=== PATIENT | female | born 1950 | race Caucasian/White ===

== ENCOUNTER 2018-04-30 18:45 | Inpatient (IN) ==
[2018-04-30] MEDS ORDERED: ALPRAZolam 1 MG TABLET PO PRN (19:18)
[2018-04-30] MEDS ORDERED: D5% in Water 1,000 ML IVC PRN (19:36)
[2018-04-30] MEDS ORDERED: *HR* Dextrose 50 % in Water (Syg) 50 ML SYRINGE IVP PRN (19:36)
[2018-04-30] MEDS ORDERED: Dextrose Gel 15 GM/37.5 ML TUBE PO PRN ×2 (19:36)
[2018-04-30] MEDS: Insulin LISPRO 300 UNITS/3 ML VIAL SQ SCH (22:51)
[2018-04-30] MEDS: Fluticasone Propionate Nasal 50 MCG/SPRAY BOTTLE NS SCH (22:53)
[2018-04-30] MEDS: Budesonide/Formoterol 160/4.5 1 PUFF INH IH SCH (23:04)
[2018-04-30] MEDS: GuaiFENesin/Dextromethorphan TABLET PO SCH (23:15)
[2018-04-30] MEDS: Ipratropium/Albuterol Neb 3 ML IH PRN (23:16)
[2018-05-01 06:01] LABS: Basophils % 0.2 %; Eosinophils % 0.2 %; Hematocrit 38.9 % (35.3-44.9); Hemoglobin 11.6 g/dL (11.5-15.4); Immature Granulocytes % 1.9 % (0-4); Lymphocytes # 1.4 K/mcL (0.6-4.6); Lymphocytes % 11.7 %; Mean Corpuscular HGB Conc 29.8 g/dL (31.6-35.5); Mean Corpuscular Hemoglobin 24.1 pg (28.0-33.3); Mean Corpuscular Volume 80.7 fL (83.0-100.0); Mean Platelet Volume 10.2 fL (9.4-12.4); Monocytes % 10.2 %; Neutrophils # 9.3 K/mcL (1.6-8.9); Platelet Count 158 K/mcL (140-400); Red Blood Count 4.82 M/mcL (3.82-4.97); Red Cell Distribution Width 15.3 % (11.5-14.5); Segmented Neutrophils % 75.8 %
[2018-05-01 06:06] LABS: Monocytes # 1.2 K/mcL (0.0-1.3); Prothrombin Time 10.8 Seconds (9.4-12.1)
[2018-05-01 06:09] LABS: Activated Partial Thrombo Time 28.4 Seconds (26.0-36.0)
[2018-05-01] MEDS: *HR* Enoxaparin 40 MG/0.4 ML SYRINGE SQ SCH (07:01)
[2018-05-01 07:02] LABS: BUN/Creatinine Ratio 49 (6-26); Blood Urea Nitrogen 28 mg/dL (8-23); Calcium 9.1 mg/dL (8.6-10.3); Carbon Dioxide 45 mEq/L (23-29); Chloride 94 mEq/L (98-107); Glucose 136 mg/dL (70-105); Osmolality,Calculated 304 (280-300); Potassium 3.4 mEq/L (3.5-5.1); Sodium 143 mEq/L (136-145); eGFR For Non-African Americans > 60 (> 60)
[2018-05-01] MEDS: Insulin LISPRO 300 UNITS/3 ML VIAL SQ SCH ×4 (07:47→21:10)
[2018-05-01] MEDS: Loratadine 10 MG TABLET PO SCH (08:28)
[2018-05-01] MEDS: predniSONE 20 MG TABLET PO SCH (08:28)
[2018-05-01] MEDS: Diltiazem CD (24hr) 240 MG CAPSULE PO SCH (08:28)
[2018-05-01] MEDS: Magnesium Oxide 400 MG TABLET PO SCH (08:29)
[2018-05-01] MEDS: Budesonide/Formoterol 160/4.5 1 PUFF INH IH SCH ×2 (08:29→21:09)
[2018-05-01] MEDS: Fluticasone Propionate Nasal 50 MCG/SPRAY BOTTLE NS SCH ×2 (08:29→21:10)
[2018-05-01] MEDS: GuaiFENesin/Dextromethorphan TABLET PO SCH ×2 (08:29→21:09)
--- NOTE | 2018-05-01 08:57 | Internal Med History&Physical ---
Date of Encounter: 05/01/18 Time of Encounter: 08:53 Assessment and Plan (1) COPD (chronic obstructive pulmonary disease) with acute bronchitis Current visit: Yes Status: Acute Acute exacerbation of her COPD she was admitted at least at two different facilities . She still gets SOB quickly , she has some cough which is productive.yellow color . Will repeat sputum cultures , CXR and added doxycycline . She was started on theophylline ,however she is complaining of some anxiety and restless , which was has been stopped She was on 5 liters which ahs been decreased to 3 liters will try to keep her Pulse Oxy around 91 . She could be a retainer . Will get ABG (2) Diabetes 1.5, managed as type 2 Current visit: Yes Status: Acute On oral meds sliding scale added will continue to followup and adjsut . Her Blood sugar is expected to increase due to predispose. (3) Weakness generalized Current visit: Yes Status: Acute diue to respiratory issues and lack of exercise . PT OT consult and increase mobility as tolerated Internal Medicine - H&P: HPI Chief complaint: SOB and cugh Admitted From: Intrahospital Transfer (from [facility]) History of present illness: Ms. Robins is a 67 year old female wh was transferred from [facility] for COPD exacerbation and continuation of treatment ans rehab . She was initially admitted to [facility] for with suspected COPD and then alter transferred to [facility] . She states that she was getting SOb , had cough and was not feeling well . This has been her second admission in a year due to respiratory issues no chest pain no nausea vomiting or diarrhea She does get D SOB on laying down and prefers to sit . 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 She still complains of SOB on minimal exertion and feels that she is very weak Past Med Surg Social Fam HX - Past Medical History Medical history: cancer, COPD, diabetes, hypertension Additional medical history: skin cancer Psychiatric history: anxiety - Past Surgical History Surgical History: hysterectomy Additional surgical history: elbow sx, right shoulder sx (2017), achilles tendon sx (02/01) - Social History Smoking Status: Former smoker Packs per day: 1 Smokeless Tobacco Status: No Alcohol use: occasionally Drug use: none Internal Medicine - H&P: Meds 3 Allergy/AdvReac Type Severity Reaction Status Date / Time adhesive tape Allergy Itching Verified 04/30/18 19:10 codeine Allergy Itching Verified 04/30/18 19:10 mold Allergy Difficulty Verified 04/30/18 19:10 Breathing Sulfa (Sulfonamide Allergy Itching Verified 04/30/18 19:10 Antibiotics) All Systems PM: A 10-system review of systems was performed and is negative for pertinent findings except as documented above in the HPI. - Constitutional Constitutional: fatigue, weakness, no chills, no excessive sweating, no fever(s) , no falls, no lethargy - EENT Eyes: no diplopia, no discharge, no dry eye, no itchy eyes, no loss of vision, no pain, no photophobia, no seeing flashes Ears: no ear discharge, no ear pain Nose, mouth and throat: no bleeding gums, no dry mouth, no dysphagia, no epistaxis, no mouth pain, no nasal obstruction, no neck mass - Cardiovascular Cardiovascular ROS IM: dyspnea, dyspnea on exertion, orthopnea, no chest pain, no claudication, no edema, no irregular heart rhythm, no lightheadedness, no palpitations, no syncope - Respiratory Respiratory: cough, dyspnea, dyspnea on exertion, wheezing, chest congestion, excessive phlegm production, no pain on inspiration, no change in phlegm color, no pain with cough - Gastrointestinal Gastrointestinal: no abdominal pain, no bloating, no change in stool character, no coffee ground emesis, no heartburn, no hematemesis, no hematochezia, no melena, no nausea, no vomiting - Genitourinary Genitourinary: no nocturia, no pelvic pain, no urinary frequency, no urinary hesitancy, no urinary incontinence Menstruation: post hysterectomy - Musculoskeletal Musculoskeletal ROS IM: arthralgias, back pain, limited range of motion - Neurological Neurological ROS: weakness, no abnormal movements, no abnormal speech, no burning sensations, no confusion, no focal weakness, no memory loss, no restless legs - Constitutional Vitals: Temp Pulse Resp BP Pulse Ox 97.3 F L 81 16 138/66 94 05/01/18 07:13 05/01/18 07:13 05/01/18 07:13 05/01/18 07:13 05/01/18 07:13 General appearance: Present: cooperative, A&O X 3 Exam: some what SOb on talking however doesnt have any cynosis feels that she is trying to catch her breath - Head Head exam: Present: atraumatic - Eye Eye exam: Present: EOMI, PERRL. Absent: scleral icterus, sclera anicteric Pupils: Present: PERRL - Neck Neck exam general surgery: Absent: tenderness, nuchal rigidity Additional comments: no JVD noted - Respiratory Respiratory exam: Present: decreased breath sounds, rhonchi, wheezes, tachypnea Additional comments: Prolong Expiration decrease breath sounds both sides some crackles on the left side especially in the middle and lower Lung field . - Cardiovascular Cardiovascular exam: Present: RRR, +S1, +S2. Absent: irregular rhythm, JVD, systolic murmur - GI/Abdominal GI/Abdominal exam: Present: normal bowel sounds, soft. Absent: firm, guarding, rigid, tenderness - Extremities Exam Extremities exam: Present: full ROM. Absent: calf tenderness, pedal edema, tenderness Additional comments: somewhat decrease ROM shoulder and left leg she is using a brace to support her right Achilles - Back Exam Back exam: Present: normal inspection. Absent: CVA tenderness (L), CVA tenderness (R), muscle spasm, tenderness, vertebral tenderness - Neurological Exam Neurological exam: Present: alert, CN II-XII intact, oriented X3, no focal deficits. Absent: facial droop, speech deficit Internal Med - H&P Results - Labs CBC & Chem 7: 05/01/18 05:30 05/01/18 05:30 Labs: Short CBC 05/01/18 Range/Units 05:30 WBC 12.2 H (4.3-11.1) K/mcL Hgb 11.6 (11.5-15.4) g/dL Hct 38.9 (35.3-44.9) % Plt Count 158 (140-400) K/mcL Neutrophils # 9.3 H (1.6-8.9) K/mcL BMP 05/01/18 05:30 Sodium 143 Potassium 3.4 L Chloride 94 L Carbon Dioxide 45 H* BUN 28 H Creatinine 0.57 L Glucose 136 H Calcium 9.1
[2018-05-01 12:19] LABS: ABG Base Excess 13 mEq/L (-2 to 3); ABG HCO3 39 mEq/L (21-27); ABG Oxygen Saturation 93 % (95-98); ABG PCO2 52 mmHg (35-45); ABG PH 7.48 pH Units (7.32-7.45); ABG PO2 65 mmHg (85-104); ABG TCO2 40 mEq/L (20-26)
[2018-05-01] MEDS: Ipratropium/Albuterol Neb 3 ML IH PRN ×2 (13:21→21:09)
[2018-05-01] MEDS: ALPRAZolam 0.25 MG TABLET PO PRN ×2 (14:50→21:09)
[2018-05-02] MEDS: Ipratropium/Albuterol Neb 3 ML IH PRN ×3 (05:01→20:28)
[2018-05-02] MEDS: *HR* Enoxaparin 40 MG/0.4 ML SYRINGE SQ SCH (05:01)
[2018-05-02 05:38] LABS: Basophils % 0.1 %; Eosinophils % 0.3 %; Hematocrit 38.5 % (35.3-44.9); Hemoglobin 11.4 g/dL (11.5-15.4); Immature Granulocytes % 1.6 % (0-4); Lymphocytes # 1.3 K/mcL (0.6-4.6); Lymphocytes % 9.4 %; Mean Corpuscular HGB Conc 29.6 g/dL (31.6-35.5); Mean Corpuscular Volume 81.1 fL (83.0-100.0); Mean Platelet Volume 10.4 fL (9.4-12.4); Monocytes # 1.5 K/mcL (0.0-1.3); Monocytes % 10.6 %; Neutrophils # 10.8 K/mcL (1.6-8.9); Platelet Count 172 K/mcL (140-400); Red Blood Count 4.75 M/mcL (3.82-4.97); Red Cell Distribution Width 15.8 % (11.5-14.5)
[2018-05-02 05:59] LABS: BUN/Creatinine Ratio 45 (6-26); Blood Urea Nitrogen 31 mg/dL (8-23); Calcium 9.4 mg/dL (8.6-10.3); Carbon Dioxide 35 mEq/L (23-29); Chloride 99 mEq/L (98-107); Glucose 311 mg/dL (70-105); Osmolality,Calculated 308 (280-300); Potassium 3.9 mEq/L (3.5-5.1); Sodium 140 mEq/L (136-145); eGFR For Non-African Americans > 60 (> 60)
[2018-05-02] MEDS: Insulin LISPRO 300 UNITS/3 ML VIAL SQ SCH ×4 (07:54→18:12)
[2018-05-02] MEDS: Budesonide/Formoterol 160/4.5 1 PUFF INH IH SCH ×2 (07:56→20:27)
[2018-05-02] MEDS: Fluticasone Propionate Nasal 50 MCG/SPRAY BOTTLE NS SCH ×2 (08:27→20:28)
[2018-05-02] MEDS: GuaiFENesin/Dextromethorphan TABLET PO SCH ×2 (08:27→20:27)
[2018-05-02] MEDS: Loratadine 10 MG TABLET PO SCH (08:28)
[2018-05-02] MEDS: Diltiazem CD (24hr) 240 MG CAPSULE PO SCH (08:28)
[2018-05-02] MEDS: Magnesium Oxide 400 MG TABLET PO SCH (08:28)
[2018-05-02] MEDS: predniSONE 20 MG TABLET PO SCH (08:28)
--- NOTE | 2018-05-02 09:16 | Internal Med Progress Note ---
Date of Encounter: 05/02/18 Time of Encounter: 09:14 - Assessment and plan (1) COPD (chronic obstructive pulmonary disease) with acute bronchitis Current Visit: Yes Status: Acute Assessment and plan: Improving on tapering dose of Prednsone as well on katia doxy slowly decrease N/ C oxygen increase activity as tolerated CXR no infiltrate (2) Diabetes 1.5, managed as type 2 Current Visit: Yes Status: Acute Assessment and plan: Increase blood sugars resume oral meds add sliding scale medium and adjust on prednisone (3) Weakness generalized Current Visit: Yes Status: Acute Assessment and plan: Conitnue increase in activity . PT OT - Subjective Interval history: She is feeling some what better her breathing seems to ahve improved she is having cough and bringing up sputum. Results form previous sputum were reviewed which were negative for all Viral infection , possible rhino virus she is able to move better and is less OSB on talking . Interested to bath - Constitutional Vitals: Temp Pulse Resp BP Pulse Ox 98.7 F 78 16 130/73 96 05/02/18 08:00 05/02/18 08:00 05/02/18 08:00 05/02/18 08:00 05/02/18 08:00 General appearance: Present: cooperative, A&O X 3, pleasant, answers questions appropriately - Head Head exam: Present: atraumatic - Eye Eye exam: Present: EOMI, PERRL Pupils: Present: PERRL - Neck Neck exam general surgery: Present: supple. Absent: tenderness, nuchal rigidity - Respiratory Respiratory exam: Present: decreased breath sounds, CTAB. Absent: chest wall tenderness, respiratory distress, rhonchi, wheezes Additional comments: Air entrt both side few crackles in front otherwise essentially clear - Cardiovascular Cardiovascular exam: Present: RRR, +S2. Absent: irregular rhythm, JVD - GI/Abdominal GI/Abdominal exam: Present: normal bowel sounds, soft. Absent: distended, firm , guarding, rebound, rigid - Extremities Exam Additional comments: Edema noted on her left foot and leg no calf tenderness , left side is within normal range she has hx of swelling on left side . she had surgery achillies on that leg - Neurological Exam Neurological exam: Present: alert, CN II-XII intact, oriented X3, no focal deficits. Absent: facial droop, speech deficit Internal Medicine: Result - Labs CBC & Chem 7: 05/02/18 05:10 05/02/18 05:10 Labs: Short CBC 05/02/18 Range/Units 05:10 WBC 13.8 H (4.3-11.1) K/mcL Hgb 11.4 L (11.5-15.4) g/dL Hct 38.5 (35.3-44.9) % Plt Count 172 (140-400) K/mcL Neutrophils # 10.8 H (1.6-8.9) K/mcL BMP 05/02/18 05:10 Sodium 140 Potassium 3.9 Chloride 99 Carbon Dioxide 35 H BUN 31 H Creatinine 0.69 Glucose 311 H Calcium 9.4 - ABG Interpretation ABG results: ABG ABG pH 7.48 pH Units (7.32-7.45) H 05/01/18 12:15 ABG pCO2 52 mmHg (35-45) H 05/01/18 12:15 ABG pO2 65 mmHg (85-104) L 05/01/18 12:15 ABG O2 Saturation 93 % (95-98) L 05/01/18 12:15 PT/INR, D-dimer PT 10.8 Seconds (9.4-12.1) 05/01/18 05:30 - Impressions Impressions Chest X-Ray 05/01/18 09:21 IMPRESSION: COPD without acute process. D/ / 05/01/2018 13:35:45 Toby Mccarty MD / [place] Interpreting Provider: Toby Mccarty MD Consult Discharge Plan - Plan Referrals: Adina Roberts [Primary Care Provider] -
[2018-05-02] MEDS ORDERED: Acetaminophen 325 MG TABLET PO PRN (09:20)
[2018-05-02] MEDS: *HR* Metformin 500 MG TABLET PO SCH (17:03)
[2018-05-02 18:09] LABS: Estimated Average Glucose 189 mg/dl; Hemoglobin A1C 8.2 %
[2018-05-02] MEDS: ALPRAZolam 0.25 MG TABLET PO PRN (20:27)
[2018-05-02] MEDS ORDERED: Insulin LISPRO 300 UNITS/3 ML VIAL SQ SCH (21:00)
[2018-05-03] MEDS: *HR* Enoxaparin 40 MG/0.4 ML SYRINGE SQ SCH (05:47)
[2018-05-03] MEDS: Ipratropium/Albuterol Neb 3 ML IH PRN (05:48)
[2018-05-03 05:49] LABS: Basophils % 0.2 %; Eosinophils # 0.1 K/mcL (0.0-0.6); Eosinophils % 0.6 %; Hematocrit 35.1 % (35.3-44.9); Hemoglobin 10.6 g/dL (11.5-15.4); Lymphocytes # 1.4 K/mcL (0.6-4.6); Lymphocytes % 11.3 %; Mean Corpuscular HGB Conc 30.2 g/dL (31.6-35.5); Mean Corpuscular Hemoglobin 24.3 pg (28.0-33.3); Mean Corpuscular Volume 80.3 fL (83.0-100.0); Mean Platelet Volume 10.6 fL (9.4-12.4); Monocytes # 1.4 K/mcL (0.0-1.3); Monocytes % 10.7 %; Neutrophils # 9.6 K/mcL (1.6-8.9); Platelet Count 138 K/mcL (140-400); Red Blood Count 4.37 M/mcL (3.82-4.97); Red Cell Distribution Width 15.6 % (11.5-14.5); Segmented Neutrophils % 75.2 %
[2018-05-03 06:04] LABS: BUN/Creatinine Ratio 40 (6-26); Blood Urea Nitrogen 23 mg/dL (8-23); Carbon Dioxide 30 mEq/L (23-29); Chloride 104 mEq/L (98-107); Glucose 225 mg/dL (70-105); Osmolality,Calculated 297 (280-300); Potassium 4.2 mEq/L (3.5-5.1); Sodium 138 mEq/L (136-145); eGFR For Non-African Americans > 60 (> 60)
[2018-05-03 06:59] VITALS: BP 144/77
[2018-05-03] MEDS: predniSONE 20 MG TABLET PO SCH (07:39)
[2018-05-03] MEDS: Diltiazem CD (24hr) 240 MG CAPSULE PO SCH (07:39)
[2018-05-03] MEDS: Magnesium Oxide 400 MG TABLET PO SCH (07:40)
[2018-05-03] MEDS: *HR* Metformin 500 MG TABLET PO SCH (07:40)
[2018-05-03] MEDS: Loratadine 10 MG TABLET PO SCH (07:41)
[2018-05-03] MEDS: Insulin LISPRO 300 UNITS/3 ML VIAL SQ SCH (08:23)
[2018-05-03] MEDS: Budesonide/Formoterol 160/4.5 1 PUFF INH IH SCH (10:00)
--- NOTE | 2018-05-03 11:30 | Discharge Summary ---
Orders not resulted at time of discharge: Pending orders 05/01/18 09:20 Sputum Culture [Culture,Sputum with Gram Stain] [] Routine Date of Encounter: 05/03/18 Time of Encounter: 11:28 - Discharge Diagnosis (1) COPD (chronic obstructive pulmonary disease) with acute bronchitis Priority: Primary Status: Acute Comments: Patient currently appears relaxed and has been weaned on her oxygen to room air and maintains a saturation greater than 90%. Patient was seen at [facility] where after diagnostic workup showed no infectious process and likely exacerbation of COPD possibly secondary to rhinovirus. Patient has been on cortical steroids and states that this morning she feels her respiratory effort has improved greatly. Patient was observed ambulating over 50 feet in the hallway on room air and maintain saturation greater than 90%. Lungs are clear throughout upper marsh and diminished basilar marsh. Patient denies any productive cough, dyspnea or orthopnea. Patient will be discharged home. Patient refuses any home health services. He recommended to continue follow-up with her package sealer and PCP. She will continue with her home medications. (2) Achilles rupture, right Priority: Secondary Status: Acute Comments: Patient continues to wear a boot to the right foot for ambulation. Patient has a recent history of a right Achilles tendon rupture with surgical repair. Patient states that she has recently over the past few weeks been given permission for weightbearing and has been ambulating over the past few weeks without difficulty. Patient was evaluated by PT/OT and noted to continue to have unsteady gait remains a fall risk. Patient is recommended to use a walker patient refuses further rehabilitation services here and has requested discharge to home. Patient refused home health PT/OT and states that she will follow up with her orthopedic surgeon in May and see what he recommends. Right foot and ankle remains slightly swollen but otherwise appears nonacute. Qualifiers: Encounter type: subsequent encounter Qualified Code(s): S86.011D - Strain of right Achilles tendon, subsequent encounter (3) Diabetes 1.5, managed as type 2 Priority: Secondary Status: Acute Comments: Patient with history of type 2 diabetes and has had slightly elevated glucoses on her fingersticks since her admission to this facility. Patient is on cortical steroids. Patient to continue with home coverage follow-up with PCP in one week. (4) Weakness generalized Priority: Secondary Status: Acute Comments: Patient was evaluated by PT/OT and showed continued slight generalized weakness lower extremities, with a unsteady gait and fall risk. Patient does have difficulty maintaining balance with the use of her right orthotic boot, which is being used for her repair of right Achilles tendon rupture. Patient was recommended to continue with physical therapy, but refused to stay for rehabilitation. Patient was recommended to continue with home health physical therapy and again refused any home health services. Patient will be discharged with recommendations to use a walker during ambulation, which she states that she has at home. Patient is to follow-up with orthopedic surgeon next month and states that he had told her he may start her on physical therapy at that point. Patient states that she has only had weightbearing on her right foot over the past 3 weeks. Hospital course: Ms. Robins is a 67 year old female, who was transferred from [facility] from [facility] for COPD exacerbation and continuation of treatment and rehab. She states that she was having increased shortness of breath and a productive cough and was not feeling well . Was evaluated at [facility] and after diagnostic testing showed to have hypercapnia on blood gases with a PCO2 of 52, but pH was 7.48 and bicarbonate yesterday night. Patient's chest x-ray did not show any infectious process and patient was diagnosed with rhinovirus. CBC showed no leukocytosis and patient's antibiotics were discontinued. This has been her second admission in a year due to respiratory issues no chest pain no nausea vomiting or diarrhea. 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 She still complains of SOB on minimal exertion and feels that she is very weak. Patient had a recent right Achilles tendon rupture which was surgically repaired by orthopedics and just recently she was giving permission for weightbearing. Patient with moderate bilateral leg weakness and deconditioning. Patient also with dyspnea after exertion of greater than 25 feet. Patient was transferred to this facility for rehabilitative services due to her deconditioning, but after 2 days patient was demanding to be discharged home. Patient's pulmonary status had lately improved over past 2 days after starting on cortical steroids and she was eventually weaned off her oxygen. Patient's lungs are clear to auscultation this morning but continued to be diminished to basilar areas. Patient is warm to be discharged to home and refuses any home health services. She was evaluated by PT/OT and shown to continue to have deconditioning with bilateral lower extremity weakness remains a fall risk due to her unsteady gait. Patient is recommended to use a wheeled walker after discharge, which she states she has at home. Patient is being discharged with recommendations to maintain her orthopedic follow-up next month and to see her PCP in one week. Discharge discussed with: patient Time spent discussing smoking cessation with patient: 3 to 10 minutes - Time Spent with Patient Total time spent providing and/or coordinating discharge services: Less than 30 minutes - Discharge Medications Allergies/Adverse Reactions: 3 Allergy/AdvReac Type Severity Reaction Status Date / Time adhesive tape Allergy Itching Verified 04/30/18 19:10 codeine Allergy Itching Verified 04/30/18 19:10 mold Allergy Difficulty Verified 04/30/18 19:10 Breathing Sulfa (Sulfonamide Allergy Itching Verified 04/30/18 19:10 Antibiotics) Date of admission: 04/30/18 19:15 Primary care physician: Adina Roberts Consults: 04/30/18 19:13 Consult to Occupational Therapy [CONS] Routine Comment: deconditioning Reason for Consult: deconditioning s/p acute resp failure Does patient have active BEDREST order?: No Is patient medically & hemodynamically stable?: Yes Patient assessed for mobility or mobilized this visit?: No Consult to Physical Therapy [CONS] Routine Comment: deconditioning Reason for Consult: deconditioning s/p acute resp failure Does patient have active BEDREST order?: No Is patient medically & hemodynamically stable?: Yes Patient assessed for mobility or mobilized this visit?: No Consult to Recreational Therapy [CONS] Routine Comment: Consult to Paintings Restorer [CONS] Routine Reason for SW Consult: deconditioning s/p acute resp failure Discharging clinician: Jett Barrera - Constitutional Vitals: Temp Pulse Resp BP Pulse Ox 98.5 F 80 18 144/77 91 05/03/18 06:57 05/03/18 06:57 05/03/18 06:57 05/03/18 06:57 05/03/18 06:57 General appearance: Present: cooperative, A&O X 3, pleasant, answers questions appropriately - Head Head exam: Present: atraumatic, normocephalic - Eye Eye exam: Present: PERRL, conjuntiva pink, sclera anicteric Pupils: Present: PERRL - Neck Neck exam general surgery: Present: supple, trachea midline. Absent: lymphadenopathy - Respiratory Respiratory exam: Present: CTAB. Absent: accessory muscle use, rales, rhonchi, wheezes Additional comments: Lungs are clear to auscultation throughout upper marsh, but noted diminished breath sounds to basilar marsh. Respiratory effort appears relaxed. - Cardiovascular Cardiovascular exam: Present: RRR, +S1, +S2. Absent: diastolic murmur, gallop, rubs, systolic murmur - GI/Abdominal GI/Abdominal exam: Present: normal bowel sounds, soft, no peritoneal signs. Absent: distended, tenderness - Extremities Exam Extremities exam: Present: warm, radial pulses palpable and symmetrical. Absent : calf tenderness, cyanotic, pedal edema Additional comments: Right foot and ankle remains slightly swollen with orthopedic boot in place. - Neurological Exam Neurological exam: Present: CN II-XII intact, oriented X3, no focal deficits. Absent: pronater drift, facial droop, speech deficit - Skin Skin exam: Present: dry, intact - Patient Status Disposition: Home, Self-Care Condition: Good Functional capacity at discharge: uses cane/walker Overall status at discharge: patient is progressing back to baseline - Discharge Instructions Follow Up With: Adina Roberts [Primary Care Provider] - - Diet and Activity Activity: ambulate only with your walker, resume usual activities as tolerated Diet: low fat, low cholesterol, low salt diet
== END 2018-05-03 12:55 | disposition home or self-care (01) | DRG 190 ==
LOC: INPGRE 19:15